=== PATIENT | female | born 1955 | race Caucasian/White ===

== ENCOUNTER 2020-01-24 06:57 | Emergency (ER) | payer MEDICARE, BC ==
[~2020-01-24] VITALS: Ht 167.6 cm; Wt 55.0 kg
[2020-01-24] MEDS ORDERED: ONDANSETRON ODT 4 MG TAB.RAPDIS PO ONE (07:30)
[2020-01-24] MEDS ORDERED: oxyCODONE/APAP 10/325 1 TAB TABLET PO ONE (07:30)
--- NOTE | 2020-01-24 07:41 | RAD ---
Examination: 3 views of the right wrist HISTORY: History of trauma COMPARISON: None available Findings/ impression: Mild dorsal displaced fracture of the distal radius and ulna with fracture line extending into the radiocarpal joint. Questionable lucency identified in the scaphoid bone. Recommend CT for further evaluation. Electronically signed by: Trevor Daniel MD (01/24/2020 7:38 AM) [id number]
[2020-01-24] MEDS ORDERED: KETAMINE HCL 500 MG/10 ML VIAL. IV ONE (08:00)
--- NOTE | 2020-01-24 09:25 | PHYS DOC ---
General Adult EDM: Chief Complaint: WRIST PAIN HPI: HPI: Patient is a 64-year-old female who tripped and fell on an extended wrist this morning. She did not hit her head she did not lose consciousness. She states she has severe pain in her right wrist now. Moving her wrist makes much worse. She denies any other injury. [] Review of Systems: Review of Systems: Constitutional: Denies fever or chills Eyes: Denies change in visual acuity HENT: Denies nasal congestion or sore throat Respiratory: Denies cough or shortness of breath Cardiovascular: Denies chest pain or edema GI: Denies abdominal pain, nausea, vomiting, bloody stools or diarrhea : Denies dysuria Musculoskeletal: Per HPI Integument: Denies rash Neurologic: Denies headache, focal weakness or sensory changes Endocrine: Denies polyuria or polydipsia Lymphatic: Denies swollen glands Psychiatric: Denies depression or anxiety Heart Score: Risk Factors: Risk Factors: DM, Current or recent (<one month) smoker, HTN, HLP, family history of CAD, obesity. Risk Scores: Score 0 - 3: 2.5% MACE over next 6 weeks - Discharge Home Score 4 - 6: 20.3% MACE over next 6 weeks - Admit for Clinical Observation Score 7 - 10: 72.7% MACE over next 6 weeks - Early Invasive Strategies Current Medications: Current Meds: Current Medications Medications (Trade) Dose Ordered Sig/[facility] Start Time Stop Time Status Last Admin Dose Admin Fentanyl Citrate (Fentanyl 2ml Vial) 50 mcg 1X ONCE 01/24/20 09:15 01/24/20 09:16 UNV Ketamine HCl (Ketamine) 55 mg 1X ONCE 01/24/20 08:00 01/24/20 08:01 DC 01/24/20 08:00 55 MG Ondansetron HCl (Zofran Odt) 4 mg 1X ONCE 01/24/20 07:30 01/24/20 07:34 DC 01/24/20 07:49 4 MG Oxycodone/ Acetaminophen (Percocet 10/325) 1 tab 1X ONCE 01/24/20 07:30 01/24/20 07:34 DC 01/24/20 07:48 1 TAB Allergies: Allergies: Allergies Coded Allergies Type Severity Reaction Last Updated Verified No Known Drug Allergies 01/24/20 No Physical Exam: PE: Constitutional: Well developed, well nourished, no acute distress, non-toxic appearance. [] HENT: Normocephalic, atraumatic, bilateral external ears normal, oropharynx mo ist, no oral exudates, nose normal. [] Eyes: PERRLA, EOMI, conjunctiva normal, no discharge. [] Neck: Normal range of motion, no tenderness, supple, no stridor. [] Cardiovascular:Heart rate regular rhythm, no murmur [] Lungs & Thorax: Bilateral breath sounds clear to auscultation [] Abdomen: Bowel sounds normal, soft, no tenderness, no masses, no pulsatile masses. [] Skin: Warm, dry, no erythema, no rash. [] Back: No tenderness, no CVA tenderness. [] Extremities: Right wrist with obvious deformity consistent with a fracture. [] Neurologic: Alert and oriented X 3, normal motor function, normal sensory function, no focal deficits noted. [] Psychologic: Affect normal, judgement normal, mood normal. [] EKG: EKG: [] Radiology/Procedures: Radiology/Procedures: []REASON: trauma PROCEDURE: WRIST 3V RIGHT Examination: 3 views of the right wrist HISTORY: History of trauma COMPARISON: None available Findings/ impression: Mild dorsal displaced fracture of the distal radius and ulna with fracture line extending into the radiocarpal joint. Questionable lucency identified in the scaphoid bone. Recommend CT for further evaluation. Impressions: STATUS: REG ER ORD. PHYSICIAN: NAOMI MEDINA DO REASON: right wrist fracture PROCEDURE: CT UPPR EXTREMTY WO CONTRST RT EXAM: CT of the right wrist DATE: 01/24/2020 8:33 AM COMPARISON: No prior INDICATION: Right wrist fracture TECHNIQUE: CT of the right wrist was performed without IV contrast. Axial, coronal and sagittal reformatted images were generated. PQRS compliance statement - One or more of the following individualized dose reduction techniques were utilized for this study: 1. Automated exposure control 2. Adjustment of the mA and/or kV according to patient size 3. Use of iterative reconstruction technique FINDINGS: There is a comminuted fracture of the distal radius. A transverse component is seen through the distal radial metaphysis with dorsal radial tilt. There is intra-articular extension dorsally. There is also a transverse fracture through the distal ulnar metaphysis in mild apex volar attenuation. Scapholunate interval is normal. IMPRESSION: 1. Comminuted fracture of the distal radius with intra-articular extension and dorsal tilt. 2. Transverse fracture of the ulnar styloid is in mild apex volar angulation. Course & Med Decision Making: Course & Med Decision Making Pertinent Labs and Imaging studies reviewed. (See chart for details) [ED course: Evaluation reveals a 64-year-old female with a distal radius and ulna fracture. Patient was initially given Percocet and Zofran for pain after the reduction she continued to complain of pain and was given 50 mcg of fentanyl which did alleviate her symptoms. Procedure fracture reduction Using ketamine 1 mg/kg IV adequate procedural sedation was obtained then using gentle traction and manipulation the distal radius and ulna were moved into a more anatomical position from a dorsally displaced position. Patient tolerated the procedure well a sugar tong splint was placed as described in this note.] Dragon Disclaimer: Dragon Disclaimer: This electronic medical record was generated, in whole or in part, using a voice recognition dictation system. Departure Departure: Impression: Primary Impression: Closed fracture distal radius and ulna Qualified Codes: S52.501A - Unspecified fracture of the lower end of right radius, initial encounter for closed fracture; S52.601A - Unspecified fracture of lower end of right ulna, initial encounter for closed fracture Disposition: 01 HOME/RESIDENCE PRIOR TO ADM Condition: STABLE Referrals: DANYELLE NGO MD (PCP) LAWRENCE ALSTON MD Call Dr. Arevalo this week to schedule a follow-up. You will need a cast placed by Dr. Arevalo. Patient Instructions: Radial Fracture, Ulnar Fracture Additional Instructions: Return to the emergency department with any new or concerning symptoms Scripts Hydrocodone Bit/Acetaminophen (NORCO 5-325 TABLET) 1 Each Tablet 1-2 TAB PO Q4-6HRS for PAIN, #20 TAB Prov: MEDINANAOMI BUCIO 01/24/20 Justification of Admission: Justification of Admission: Justification of Admission Dx: No Splinting [Patient] informed of findings. Displaced right distal radius and ulna fracture applied by Dr. Reed. The splint is checked by Dr. Reed, with splint fit well with good cap refill and neurovascular intact stabilization of the injury. Distal capillary refill {normal cap refill"] and distal neurologic function neuro intact Procedural Sedation Proc Sed Indication: [Displaced distal radius and ulna fracture] Consent: Informed Physician Involvement: The attending physician was present and supervising this procedure. Pre-Sedation Documentation and Exam: [See physical exam malum potty and ASA 1] Airway Assessment: [ASA 1] Prior History of Anesthesia Complications: [None] ASA Classification: 1 Sedation/ Anesthesia Plan: [Ketamine 1 mg/kg] Medications Used: Ketamine Monitoring and Safety: The patient was placed on a shelter monitor and vital signs, pulse oximetry and level of consciousness were continuously evaluated throughout the procedure. The patient was closely monitored until recovery from the medications was complete and the patient had returned to baseline status. Respiratory therapy was on standby at all times during the procedure. (The following sections must be completed) Post-Sedation Vital Signs: [See nurses notes] Post-Sedation Exam: Patient was wide-awake with no complication Complications: [] NAOMI MEDINA DO Jan 24, 2020 09:25
--- NOTE | 2020-01-24 09:35 | RAD ---
EXAM: CT of the right wrist DATE: 01/24/2020 8:33 AM COMPARISON: No prior INDICATION: Right wrist fracture TECHNIQUE: CT of the right wrist was performed without IV contrast. Axial, coronal and sagittal reformatted images were generated. PQRS compliance statement - One or more of the following individualized dose reduction techniques were utilized for this study: 1. Automated exposure control 2. Adjustment of the mA and/or kV according to patient size 3. Use of iterative reconstruction technique FINDINGS: There is a comminuted fracture of the distal radius. A transverse component is seen through the distal radial metaphysis with dorsal radial tilt. There is intra-articular extension dorsally. There is also a transverse fracture through the distal ulnar metaphysis in mild apex volar attenuation. Scapholunate interval is normal. IMPRESSION: 1. Comminuted fracture of the distal radius with intra-articular extension and dorsal tilt. 2. Transverse fracture of the ulnar styloid is in mild apex volar angulation. Electronically signed by: Santana Smith MD (01/24/2020 9:32 AM) [id number]
[2020-01-24] MEDS ORDERED: HYDR-3165 PO (09:43)
[2020-01-24 10:20] VITALS: BP 133/76
== END 2020-01-24 10:20 | disposition home or self-care (01) ==
LOC: ER 06:57
DX: S52.501A Unspecified fracture of the lower end of right radius, initial encounter for closed fracture (principal); S52.601A Unspecified fracture of lower end of right ulna, initial encounter for closed fracture; W01.0XXA Fall on same level from slipping, tripping and stumbling without subsequent striking against object, initial encounter; Y93.89 Activity, other specified; Y92.89 Other specified places as the place of occurrence of the external cause; Y99.8 Other external cause status
CPT/HCPCS: 25605; 73110; 73200; 96374; 99285; J3010; J3490; Q0162

== ENCOUNTER → 2020-02-13 | Outpatient (CLI) | payer MEDICARE, BC ==
[2020-01-24 10:20] VITALS: BP 133/76
[~2020-02-13] MED LIST: HYDR-3165 PO
--- NOTE | 2020-02-13 17:31 | RAD ---
3 view study of the right wrist Clinical indications: Follow-up of right wrist fracture FINDINGS: Again seen is a comminuted fracture of the distal right radius which since the previous study has been fixated and reduced with an anterior metallic surgical stabilizer plate and multiple screws. The fracture is well aligned. The fracture is not yet completely healed. An again seen is a comminuted fracture of the distal ulna including the metaphysis and styloid process. Position and appearance of this fracture fracture is unchanged and remains incompletely healed. Radial carpal joint articulation is maintained. No lytic process is seen. IMPRESSION: ORIF of comminuted fracture of the distal right radius. Stable nonhealed fracture of the distal right ulna. Electronically signed by: Vishnu Montague MD (02/13/2020 5:28 PM) [id number]
== END | disposition home or self-care (01) ==
LOC: DXRAD 14:11
PROVIDERS: ATTEND Orthopaedic Surgery
DX: S52.601G Unspecified fracture of lower end of right ulna, subsequent encounter for closed fracture with delayed healing (principal); X58.XXXD Exposure to other specified factors, subsequent encounter; Z98.890 Other specified postprocedural states
CPT/HCPCS: 73110

== ENCOUNTER → 2020-03-13 | Outpatient (CLI) | payer MEDICARE, BC ==
--- NOTE | 2020-03-13 13:41 | RAD ---
Right wrist 3 views INDICATION: Status post surgery right wrist COMPARISON: Right wrist x-rays 02/13/2020 and 01/24/2020 FINDINGS: Redemonstrated are plate and screw construct fixation of a comminuted distal radial fracture with intra-articular extension. There is residual deformity to the distal ulna which also shows a comminuted fracture. There is evidence of callus formation around the fracture margins in both the radius and ulna. Alignment is near-anatomic. There is residual soft tissue swelling. IMPRESSION: Healing distal radial and ulnar intra-articular fractures status post volar plate and screw construct fixation of the distal radial fracture. There is residual soft tissue swelling but no aggressive osseous lesions or evidence of hardware loosening or migration noted. Alignment is near-anatomic. Electronically signed by: Francisco Gaxiola MD (03/13/2020 1:39 PM) [id number]
== END | disposition home or self-care (01) ==
LOC: DXRAD 09:17
PROVIDERS: ATTEND Physician Assistant
DX: Z09 Encounter for follow-up examination after completed treatment for conditions other than malignant neoplasm (principal); M21.831 Other specified acquired deformities of right forearm; M79.89 Other specified soft tissue disorders
CPT/HCPCS: 73110

== ENCOUNTER → 2020-04-10 | Outpatient (CLI) | payer MEDICARE, BC ==
--- NOTE | 2020-04-10 15:14 | RAD ---
3 views the right wrist compared to similar exam dated March 132023 status post surgery follow-up. FINDINGS: There is redemonstration of an impacted fracture of the distal radius status post plate-screw fixation, with mild interval callus formation. Impacted fracture of the distal ulna is also redemonstrated and has undergone mild interval callus formation as well. Remaining bones of the wrist are diffusely osteopenic. Small avulsion fracture at the lateral margin of the hamate is stable. IMPRESSION: 1. Subtle interval callus formation about the distal radial and ulnar fractures, with no change in alignment. Hamate avulsion fracture is stable as well. Electronically signed by: Elvin Martinez MD (04/10/2020 3:11 PM) [id number]
== END | disposition home or self-care (01) ==
LOC: DXRAD 08:16
PROVIDERS: ATTEND Physician Assistant
DX: Z09 Encounter for follow-up examination after completed treatment for conditions other than malignant neoplasm (principal); S52.601D Unspecified fracture of lower end of right ulna, subsequent encounter for closed fracture with routine healing; X58.XXXD Exposure to other specified factors, subsequent encounter
CPT/HCPCS: 73110

== ENCOUNTER → 2020-05-22 | Outpatient (CLI) | payer MEDICARE, BC ==
--- NOTE | 2020-05-22 11:24 | RAD ---
2 views the right wrist compared to similar exam dated April 10, 2020 for fracture follow-up. FINDINGS: Plate and screw fixation of a distal radial fracture is stable. Healing impacted distal ulnar fracture is also stable. No new fracture or acute osseous abnormality. IMPRESSION: 1. Stable postsurgical and healing post right changes of the distal forearm as described. Electronically signed by: Elvin Martinez MD (05/22/2020 11:20 AM) [id number]
== END ==
LOC: DXRAD 09:52
PROVIDERS: ATTEND Physician Assistant
DX: Z09 Encounter for follow-up examination after completed treatment for conditions other than malignant neoplasm (principal)
CPT/HCPCS: 73100

== ENCOUNTER 2020-10-10 11:53 | Emergency (ER) | payer MEDICARE, BC ==
[~2020-10-10] VITALS: Ht 167.6 cm; Wt 55.0 kg
[2020-10-10 11:53] VITALS: BP 103/69
[2020-10-10] MEDS ORDERED: HYDROcodone/APAP 5/325MG 1 TAB TABLET PO ONE (12:30)
--- NOTE | 2020-10-10 12:35 | PHYS DOC ---
Past History Past Medical History: Anxiety, Other Additional Past Medical Histor: liver cancer; osteoporosis Past Surgical History: Cancer Surgery Alcohol Use: None General Adult EDM: Chief Complaint: LOWER EXT PAIN HPI: HPI: Patient is a 64-year-old female who presents with right hip pain. Patient states that she fell in May and fractured her right hip and had surgery. Patient states a week ago she was moving a TV and started having right hip pain. Patient states that the pain has increased. Patient took Tylenol today before arrival without any relief. Patient states that pain is worse with standing and walking. Patient is still able to bear weight but produces pain. She has history of anxiety, hypertension, COPD. Review of Systems: Review of Systems: Constitutional: Denies fever or chills Eyes: Denies change in visual acuity HENT: Denies nasal congestion or sore throat Respiratory: Denies cough or shortness of breath Cardiovascular: Denies chest pain or edema GI: Denies abdominal pain, nausea, vomiting, bloody stools or diarrhea : Denies dysuria Musculoskeletal: Denies back pain, reporting right hip pain radiates into her groin Integument: Denies rash Neurologic: Denies headache, focal weakness or sensory changes Endocrine: Denies polyuria or polydipsia Lymphatic: Denies swollen glands Psychiatric: Denies depression or anxiety Allergies: Allergies: Allergies Coded Allergies Type Severity Reaction Last Updated Verified No Known Drug Allergies 01/24/20 No Physical Exam: PE: Constitutional: Well developed, well nourished, no acute distress, non-toxic appearance. [] HENT: Normocephalic, atraumatic, bilateral external ears normal, oropharynx moist, no oral exudates, nose normal. [] Eyes: PERRLA, EOMI, conjunctiva normal, no discharge. [] Neck: Normal range of motion, no tenderness, supple, no stridor. [] Cardiovascular:Heart rate regular rhythm, no murmur [] Lungs & Thorax: Bilateral breath sounds clear to auscultation [] Abdomen: Bowel sounds normal, soft, no tenderness, no masses, no pulsatile masses. [] Skin: Warm, dry, no erythema, no rash. [] Back: No tenderness, no CVA tenderness. [] Extremities: Right hip pain, no edema, range of motion intact Neurologic: Alert and oriented X 3, normal motor function, normal sensory function, no focal deficits noted. [] Psychologic: Affect normal, judgement normal, mood normal. [] EKG: EKG: [] Radiology/Procedures: Radiology/Procedures: [] Heart Score: C/O Chest Pain: No Risk Factors: Risk Factors: DM, Current or recent (<one month) smoker, HTN, HLP, family history of CAD, obesity. Risk Scores: Score 0 - 3: 2.5% MACE over next 6 weeks - Discharge Home Score 4 - 6: 20.3% MACE over next 6 weeks - Admit for Clinical Observation Score 7 - 10: 72.7% MACE over next 6 weeks - Early Invasive Strategies Course & Med Decision Making: Course & Med Decision Making Pertinent Labs and Imaging studies reviewed. (See chart for details) [] Right hip x-ray ordered to rule out fracture. Patient had recent surgery in May for a fracture after a fall. Patient given hydrocodone. Patient took Tylenol this morning with no relief. Patient able to still bear weight but using a cane. Patient reports pain is worse with standing and trying to ambulate. Range of motion intact. Pedal pulses intact. X-ray of right hip and pelvis is negative for any acute fracture. Patient instructed to take ibuprofen and Tylenol at home for discomfort. Follow-up with PCP on Monday for further evaluation. Return to emergency room with worsening symptoms or concerns. Kimberli Disclaimer: Kimberli Disclaimer: This electronic medical record was generated, in whole or in part, using a voice recognition dictation system. Departure Departure: Impression: Primary Impression: Hip pain, right Disposition: 01 DC HOME SELF CARE/HOMELESS Condition: STABLE Referrals: DANYELLE NGO MD (PCP) Patient Instructions: RICE - Routine Care for Injuries, [id number] Additional Instructions: X-ray of right hip and pelvis is negative for any acute fracture. You can take ibuprofen and Tylenol at home for discomfort. Use ice to right hip. Follow-up with PCP on Monday for further evaluation. Return to emergency room with worsening symptoms or concerns. EMERGENCY DEPARTMENT GENERAL DISCHARGE INSTRUCTIONS Thank you for coming to [facility] (ED) today and trusting us with you care. We trust that you had a positivie experience in our Emergency Department. If you wish to speak to the department management, you may call the director at [phone]. YOUR FOLLOW UP INSTRUCTIONS ARE FOLLOWS: 1. Do you have a private Doctor? If you do not have a private doctor, please ask for a resource list of physicians or clinics that may be able to assist you with follo w up care. 2. The Emergency Physician has interpreted your x-rays. The X-Ray specialist will also review them. If there is a change in the findings, you will be notified in 48 hours when at all possible. 3. A lab test or culture has been done, your results will be reviewed and you will be notified if you need a change in treatment. ADDITIONAL INSTRUCTIONS AND INFORMATION: 1. Your care today has been supervised by a physician who is specially trained in emergency care. Many problems require more than one evaluation for a complete diagnosis and treatment. We recommend that you schedule your follow up appointment as rec ommended to ensure complete treatment of you illness or injury. If you are unable to obtain follow up care and continue to have a problem, or if your condition worsens, we recommend that you return to the ED. 2. We are not able to safely determine your condition over the phone nor are we able to give sound medical advice over the phone. For these safety reasons, if you call for medical advice we will ask you to come to the ED for further evaluation. 3. If you have any questions regarding these discharge instructions please call the ED at [phone]. SAFETY INFORMATION: In the interest of safety, wellness, and injury prevention; we encourage you to wear your sealbelt, if you smoke; quite smoking, and we encourage family to use a protective helmet for bicycling and other sporting events that present an increased risk for head injury. IF YOUR SYMPTOMS WORSEN OR NEW SYMPTOMS DEVELOP, OR YOU HAVE CONCERNS ABOUT YOUR CONDITION; OR IF YOUR CONDITION WORSENS WHILE YOU ARE WAITING FOR YOUR FOLLOW UP APPOINTMENT; EITHER CONTACT YOUR PRIMARY CARE DOCTOR, THE PHYSICIAN WHOSE NAME AND NUMBER YOU WERE GIVEN, OR RETURN TO THE ED IMMEDIATELY. BALTAZAR RODRIGUEZ APRN Oct 10, 2020 12:35
--- NOTE | 2020-10-10 13:02 | RAD ---
Pelvis and two-view right hip HISTORY: Right hip pain AP view the pelvis obtained as well as AP and frog leg views right hip There is right hip hemiarthroplasty. The acetabular femoral components are aligned and well seated. T he visualized osseous structures appear grossly intact although there is obscuration of bony detail o f sacrum due to overlying bowel gas. IMPRESSION: Prior right hip hemiarthroplasty. No acute findings. Electronically signed by: Parviz Blanc III, MD (10/10/2020 1:00 PM) [facility]
== END 2020-10-10 13:20 | disposition home or self-care (01) ==
LOC: ER 11:53
DX: M25.551 Pain in right hip (principal)
CPT/HCPCS: 73502; 99283